=== PATIENT | male | born 1965 | race Caucasian/White ===

== ENCOUNTER 2025-01-07 20:13 | Outpatient (BNV) | payer MEDICAID, SELFPAY | END 2025-01-08 09:00 | PROVIDERS: Admitting Provider Clinical Nurse Specialist Psychiatric/Mental Health, Adult; Visit Provider Internal Medicine Cardiovascular Disease | DX: R00.1 Bradycardia, unspecified (principal) | CPT/HCPCS: 93010 ==

== ENCOUNTER 2025-01-07 20:13 | Inpatient (IN) | payer OTHER, SELFPAY ==
[2025-01-07 20:51] VITALS: BP 167/96; PULSE 100; RESP 18; TEMP 37.1; O2SAT 95
[2025-01-07 23:22] VITALS: BMI 25.1
--- NOTE | 2025-01-08 03:47 | PC.ADMIT ---
Pt is a 59 year old male admitted to unit after referral from CARE team via interhospital transfer from [facility]. Pt arrived on unit at 2050 on 01/07/25. Legal status: 12B. Pt medical issues are; DMII, CAD, HTN, hyperlipidemia, hypertriglyceridemia, hx of myocardial infarct and stent placement. Pt reports THC use but denies any other substances. Pt denies etoh use. Pt refused utox at [facility] according to crisis evaluation. Pt refused to participate in admission process, very labile, so entire admission was done from crisis evaluation. Pt stated that he is too tired for all this and I want to sleep . Pt appears to be suffering from delusions, states he was to a nurse 4 days ago and that he has been here recently identifying an MHC and stating that he remembers her and that he was here the other day . Pt refused all legals and other admission paperwork. Pt was irritable and labile. Precipitant to admission is pt threatening to kill another resident at [facility] in [place]. [facility] clinician then called [place] [employer] to conduct a wellness check. Upon PD and WATCH AND CLOCK REPAIR CLERK arrival, pt began yelling stating that they should not be at his door, infringing upon his rights . Pt's speech was pressured and he was standing in the doorway so one could not see into his apartment. Pt was not able to engage about HI threats he had made earlier, presented wth pressured speech, grandiose thinking and paranoia about someone breaking into his apartment. Pt stated, I have a 487 IQ, I know whats going on . Pt threatened another resident that he would kill them. Teressa, [facility] Director reported that client has also been telling his neighbors that he will eat them and that he wants to kill all the faggots . Katie, [facility] Clinician states that pt has hx of aggression. Crisis evaluation reports pt appeared to be responding to internal stimuli and has a hx of this. [facility] suspects pt is non compliant with medications. Pt presents as disheveled and dressed in [facility]. During skin check with a male MHC and female RN, pt stated You have ulterior motives to having me strip down, you just want to look at my junk , RN told pt that the staff here are professionals and are only assessing his skin, pt responded, yeah, right . Skin check reflects a tattoo on left upper chest area but otherwise unremarkable. Provider cotton broker CAW notified of admission and orders obtained. Pt placed on 15 minute checks for safety. Reports feeling safe in hospital but states he does not belong here .
[2025-01-08] MEDS: Nicotine Polacrilex 2 MG GUM 4 MG BUCCAL ×4 (06:58→21:25)
[2025-01-08] MEDS: Albuterol Sulfate 90 MCG 8 GM INHALER 2 PUFF INHALE (07:09)
[2025-01-08 07:58] VITALS: BP 175/79; PULSE 88; RESP 16; TEMP 36.8; O2SAT 98
[2025-01-08 08:06] LABS: Glucose, Whole Blood 255 mg/dL (60-115)
[2025-01-08] MEDS: Metoprolol Succinate ER 25 MG TAB.ER.24H PO (08:45)
--- NOTE | 2025-01-08 09:00 | ECG_ITS ---
Test Reason : QTc prolongation Blood Pressure : */* mmHG Vent. Rate : 59 BPM Atrial Rate : 59 BPM P-R Int : 134 ms QRS Dur : 92 ms QT Int : 462 ms P-R-T Axes : 150 -27 131 degrees QTcB Int : 457 ms Limb leads reversal Sinus bradycardia U waves Inferior infarct , age undetermined Abnormal ECG No previous ECGs available Referred By: Kirsten Fine Electronically Signed By: Milton Boggs
[2025-01-08] MEDS: Lithium Carbonate ER 450 MG TABLET.ER PO ×2 (09:01→21:27)
[2025-01-08] MEDS: OLANZapine 10 MG TABLET 20 MG PO ×2 (09:03→21:28)
[2025-01-08] MEDS: metFORMIN HCl 500 MG TABLET PO ×2 (09:04→21:27)
[2025-01-08 10:06] LABS: Estimated Average Glucose 177 mg/dL; Hemoglobin A1C 228.3598 umol/L; Hemoglobin A1c % 7.8 % (<6.0); Total Hemoglobin (HGBA1C) 3730.0137 umol/L
[2025-01-08 10:16] LABS: Cholesterol 167 mg/dL (<200); Creatinine Clr Calc Pharmacy 75.8; Estimated Glomerular Filt Rate > 60; HDL Cholesterol 36 mg/dL (>40); LDL Cholesterol Calculated 108 mg/dL (<100); Magnesium 2.1 mg/dL (1.6-2.6); Triglycerides 118 mg/dL (<150)
[2025-01-08 10:31] LABS: Free T4 (Free Thyroxine) 1.51 ng/dL (0.71-1.85); Thyroid Stimulating Hormone 0.21 uIU/mL (0.32-4.0)
[2025-01-08 10:45] LABS: Folate 12.9 ng/mL (> or = 4.0); Vitamin B12 357 pg/mL (200-900)
[2025-01-08 11:40] VITALS: BP 175/84
[2025-01-08] MEDS: lisinopriL 40 MG TABLET PO (11:40)
--- NOTE | 2025-01-08 12:16 | P.CONHOSP_ITS ---
History of Present Illness Data of Consult Service Date: 01/08/25 Primary Care Provider: Unknown Physician HPI Reason for consult: Admission H&P Pt is a 59-year-old male with a PMH significant for?HTN, [id number] type 2 diabetes, CAD s/p stenting x4 in 2009, and bipolar disorder who is admitted to psychiatry unit for manic behavior and homicidal ideation. Pt was initially sent in on a section 12 by [facility] clinician after pt was verbally aggressive, grandiose, and making homicidal threats toward homosexuals in the community. Medical consult for admission H&P. Pt seen and evaluated room where he appears manic, but cooperative. Pt is easily directable and participate meaningfully in HPI. Reports was previously on insulin for diabetes years ago when he was overweight. Pt has since lost over 80 lbs and has been taken off insulin. Currently only on metformin, and pt reports controls his diet and walks a lot. Currently pt has no acute medical complaints. Denies chest pain/pressure, palpitations. No nausea, vomiting, diarrhea. Denies fever, chills. No SOB or difficulty breathing. Labs reviewed, significant for initial POC pf 255 with repeat this afternoon of 137. Review of Systems 2 Review of Systems: Pt has no acute medical complaints at this time. [facility] Medical History (Updated 01/08/25 @ 12:59 by OLIVERIO Rascon) Asthma HTN (hypertension) Non-insulin dependent type 2 diabetes mellitus Hyperlipidemia CAD (coronary artery disease) Social History Household Members: None Housing: Other Housing Other:: [facility] - community health type accommodations Do you presently have visiting nurse or other home services: No Patient Tobacco Use Status: Current everyday Tobacco user Tobacco use type: Cigarette Cigarette Packs Per Day: 0.50 Cigarettes Per Day: 10.0 Smoked in Last 30 Days: Yes e-Cigarette/Vaping Use: Never Used Patient Interested in Nicotine Replacement: Yes (gum only) Patient Given Instructions on How to Stop Smoking: No (not interested) Second Hand Smoke Exposure: No Use of substances other than those prescribed or required for medical reasons: Yes Substance Use Type: Marijuana Currently Displaying Signs/Symptoms of Drug Intoxication Withdrawal: No Any prior treatment program specific to substance use: Yes Advance Directives: No Advance Directives Information Provided: No Do you have a plan to hurt others: Vague Recently lost weight without trying: No How much weight loss: Not applicable Eating poorly because of decreased appetite: No Nutrition screen score: 0 Nutrition Risks: No Nutritional Risk service: No Sexual orientation: Straight/Heterosexual Meds Allergies Allergy/AdvReac Type Severity Reaction Status Date / Time aspirin Allergy Mild Unknown Verified 01/07/25 23:19 pollen extracts Allergy Unknown Unknown Verified 01/07/25 23:19 divalproex sodium AdvReac Severe Rash Verified 01/07/25 23:19 [From Depakote] cats Allergy Unknown Unknown Uncoded 01/07/25 21:07 Active Medications: Current Medications Acetaminophen (Acetaminophen 325 Mg Tablet) 650 mg PO Q6H PRN PRN Reason: Headache/Pain Mild Scale (1-3) Al Hydroxide/Mg Hydroxide (Magnesium Hydrox/Alum Hydrox 30 Ml Oral.Susp) 30 ml PO Q6H PRN PRN Reason: Heartburn/Nausea Albuterol Sulfate (Albuterol Sulfate 90 Mcg 8 Gm Inhaler) 2 puff INHALE Q6H PRN PRN Reason: Shortness Of Breath Aspirin (Aspirin Enteric Coated 81 Mg Tablet.Dr) 81 mg PO DAILY [facility] Atorvastatin Calcium (Atorvastatin Calcium 40 Mg Tablet) 40 mg PO BEDTIME [facility] Doxazosin Mesylate (Doxazosin Mesylate 2 Mg Tablet) 2 mg PO BEDTIME [facility]; Protocol Hydroxyzine HCl (Hydroxyzine Hcl 50 Mg Tablet) 50 mg PO TID PRN PRN Reason: Anxiety Lisinopril (Lisinopril 40 Mg Tablet) 40 mg PO DAILY [facility]; Protocol Last Admin: 01/08/25 11:40 Dose: 40 mg [place] Carbonate ([place] Carbonate Er 450 Mg Tablet.Er) 450 mg PO BID [facility] Lorazepam (Lorazepam 1 Mg Tablet) 1 mg PO Q4H PRN PRN Reason: agitation Magnesium Hydroxide (Milk Of Magnesia 30 Ml Oral.Susp) 30 ml PO DAILY PRN PRN Reason: Constipation Metformin HCl (Metformin Hcl 500 Mg Tablet) 500 mg PO BID [facility] Metoprolol Succinate (Metoprolol Succinate Er 25 Mg Tab.Er.24h) 25 mg PO DAILY [facility]; Protocol Nicotine Polacrilex (Nicotine Polacrilex 2 Mg Gum) 4 mg BUCCAL Q2H PRN PRN Reason: Nicotine Cravings Last Admin: 01/08/25 11:00 Dose: 4 mg Olanzapine (Olanzapine 10 Mg Tablet) 20 mg PO BEDTIME [facility] Trazodone HCl (Trazodone Hcl 50 Mg Tablet) 50 mg PO BEDTIME MRX1 PRN PRN Reason: Insomnia Home Medications ?Medication ?Instructions ?Recorded ?Confirmed ?Last Taken ?Type albuterol sulfate 90 mcg/actuation 2 puff inhalation Q6H PRN 01/07/25 01/07/25 Unknown History aerosol inhaler (Ventolin HFA) Shortness Of Breath aspirin 81 mg tablet,delayed 81 mg PO DAILY 01/07/25 01/07/25 Unknown History release atorvastatin 40 mg tablet 40 mg PO BEDTIME 01/07/25 01/07/25 Unknown History doxazosin 2 mg tablet 2 mg PO BEDTIME 01/07/25 01/07/25 Unknown History hydroxyzine pamoate 50 mg capsule 50 mg PO TID PRN Anxiety 01/07/25 01/07/25 Unknown History lithium carbonate 450 mg 450 mg PO BID 01/07/25 01/07/25 Unknown History tablet,extended release metformin 500 mg tablet 500 mg PO BID 01/07/25 01/07/25 Unknown History metoprolol succinate 25 mg 25 mg PO DAILY 01/07/25 01/07/25 Unknown History tablet,extended release 24 hr olanzapine 20 mg tablet 20 mg PO DAILY 01/07/25 01/07/25 Unknown History lisinopril 40 mg tablet 40 mg DAILY 01/08/25 01/08/25 Unknown History Physical Exam 2 Vital Signs and Narrative: Vital Signs: Last Vital Signs Temp 98.2 F 01/08/25 07:58 Pulse 88 01/08/25 07:58 Resp 16 01/08/25 07:58 BP 175/84 H 01/08/25 11:40 Pulse Ox 98 01/08/25 07:58 O2 Del Method Room Air 01/08/25 07:58 BMI result Body Mass Index 25.1 General: AOx3, no acute distress Resp: CTA bilaterally CVS: S1, S2, RRR GI: +BS, NT, no distention Skin: Warm, dry Neuro: Cranial nerves II-XII grossly intact bilaterally. Motor grossly intact bilaterally Extremities: No edema Psych: Manic with pressured speech. Cooperative, redirectable. Results Labs 01/08/25 09:40 Labs: Laboratory Results - last 24 hr 01/08/25 01/08/25 01/08/25 08:01 09:14 09:40 Estim Creat Clear Calc 75.8 Estimated GFR > 60 POC Glucose 255 H Estimat Average Glucose 177 Hemoglobin A1c % 7.8 H Magnesium 2.1 Triglycerides 118 Cholesterol 167 LDL Cholesterol, Calc 108 H HDL Cholesterol 36 L Vitamin B12 357 Folate 12.9 TSH 0.21 L Free T4 1.51 Assessment and Plan (1) Medical clearance for psychiatric admission: Status: Acute Plan Pt is a 59-year-old male with a PMH significant for?HTN, jgu-bcllrtt-abvyppcsk type 2 diabetes, CAD s/p stenting x4 in 2009, and bipolar disorder who is admitted to [facility] psychiatry unit for manic behavior and homicidal ideation. Pt was initially sent in on a section 12 by [facility] clinician after pt was verbally aggressive, grandiose, and making homicidal threats toward homosexuals in the community. Medical consult for admission H&P. Mood disorder Plan as per Psychiatry Yld-ldybetb-piowlsypx type 2 diabetes Initial POC elevated at 255, repeat this afternoon better controlled 137 A1c elevated at 7.8 Will hold on sliding scale insulin for now, but if patient's POCs are consistently above [address] SSI Continue metformin Encouraged diabetic diet and diabetic snacking CAD/HLD Continue statin, aspirin HTN Continue lisinopril and metoprolol Asthma Not in acute exacerbation Continue home inhalers Thank you for allowing us to participate in the care of this patient. Signing off at this time. Please re-consult if any acute complaints or issues arise.
[2025-01-08 12:34] LABS: Glucose, Whole Blood 137 mg/dL (60-115)
--- NOTE | 2025-01-08 12:52 | HO.PSYADMNOT ---
HPI Date of Service: 01/08/25 Chief Complaint: Bipolar Disorder HPI Subjective Notes: Heart Warning Narrative: per [employer] TECHNICAL EDUCATION TEACHER crisis eval, mobile crisis eval was called due to pt's having threatened to kill another person at his [facility]. PD was also called and performed wellness check; pt was accusing them of infringing upon his rights and behaved in an agitated manner. he was described as demonstrating pressured speech, grandiosity, and paranoia. per collateral from [facility], a peer of pt's at [facility] texted [facility] saying pt had threatened to kill them. [facility]S also reported pt has been threatening to eat the neighbors and kill all the faggots. PD brought pt to [facility] ED on section 12. on interview with assembler unit, pt as described as not forthcoming. he did stae he believes he has schizophrenia and that he has written 3 books, all with spiritual themes. on interview with MD, pt was reasonably pleasant, for the most part, but with increase rate and amount of speech as well as grandiosity. he characterized his mother as a serial killer, and when MD attempted to explore the assertion, pt became defensive and refused to continue to discuss the subject. otherwise pt appeared forthcoming and amenable to treatment. he appeared aware lithium and olanzapine were of great import for his mental health, and he did not appear opposed to taking them. he asserted that he had been medication-compliant in the days leading up to his presentation and agreed to lithium level tonight with adjustment over the weekend as necessary. of note, per MARILYN Warner, pt was quite menacing toward her. pt did not sign in voluntarily and remains on a 12b. Past Psychiatric History: hosps: 14. MRE about 2 months ago, says he can't recall where. SA: denies SIB: denies HIB: denies; per [facility], pt does have h/o aggression outpt: awaiting services [facility] [place] Medical Evaluation Reviewed: Yes [facility] Medical History (Updated 01/08/25 @ 15:32 by Everardo Kurtz MD) Asthma HTN (hypertension) Non-insulin dependent type 2 diabetes mellitus Hyperlipidemia CAD (coronary artery disease) Family History: father - PTSD mother - serial killer Social History: lives alone in an apartment in [place]. 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 bachelor's degree in math. Substance History: tobacco - smokes about 1/2 ppd cannabis - daily denies use of alcohol, illicit drugs, other substances of abuse Trauma History: per [employer] TECHNICAL EDUCATION TEACHER eval: who hasn't been through trauma, then refused to elaborate. Diagnostics Vital Signs (24Hr): Vital Signs - 24 hr 01/07/25 20:51 01/08/25 07:58 01/08/25 11:40 Temperature 98.7 F 98.2 F Pulse Rate 100 88 Respiratory Rate 18 16 Blood Pressure 167/96 H 175/79 H 175/84 H Pulse Oximetry 95 98 Oxygen Delivery Method Room Air Room Air BMI result Body Mass Index 25.1 Labs 01/08/25 09:40 Labs: Laboratory Results - last 48 hr 01/08/25 01/08/25 01/08/25 08:01 09:14 09:40 Creatinine 0.99 Estim Creat Clear Calc 75.8 Estimated GFR > 60 POC Glucose 255 H Estimat Average Glucose 177 Hemoglobin A1c % 7.8 H Magnesium 2.1 Triglycerides 118 Cholesterol 167 LDL Cholesterol, Calc 108 H HDL Cholesterol 36 L Vitamin B12 357 Folate 12.9 TSH 0.21 L Free T4 1.51 01/08/25 12:30 Creatinine Estim Creat Clear Calc Estimated GFR POC Glucose 137 H Estimat Average Glucose Hemoglobin A1c % Magnesium Triglycerides Cholesterol LDL Cholesterol, Calc HDL Cholesterol Vitamin B12 Folate TSH Free T4 Meds/Allergies Meds Home Medications ?Medication ?Instructions ?Recorded ?Confirmed ?Type albuterol sulfate 90 mcg/actuation 2 puff inhalation Q6H PRN 01/07/25 01/07/25 History aerosol inhaler (Ventolin HFA) Shortness Of Breath aspirin 81 mg tablet,delayed 81 mg PO DAILY 01/07/25 01/07/25 History release atorvastatin 40 mg tablet 40 mg PO BEDTIME 01/07/25 01/07/25 History doxazosin 2 mg tablet 2 mg PO BEDTIME 01/07/25 01/07/25 History hydroxyzine pamoate 50 mg capsule 50 mg PO TID PRN Anxiety 01/07/25 01/07/25 History lithium carbonate 450 mg 450 mg PO BID 01/07/25 01/07/25 History tablet,extended release metformin 500 mg tablet 500 mg PO BID 01/07/25 01/07/25 History metoprolol succinate 25 mg 25 mg PO DAILY 01/07/25 01/07/25 History tablet,extended release 24 hr olanzapine 20 mg tablet 20 mg PO DAILY 01/07/25 01/07/25 History lisinopril 40 mg tablet 40 mg DAILY 01/08/25 01/08/25 History Allergies Allergies Allergy/AdvReac Type Severity Reaction Status Date / Time aspirin Allergy Mild Unknown Verified 01/07/25 23:19 pollen extracts Allergy Unknown Unknown Verified 01/07/25 23:19 divalproex sodium AdvReac Severe Rash Verified 01/07/25 23:19 [From Depakote] cats Allergy Unknown Unknown Uncoded 01/07/25 21:07 Mental Status Exam Mental Status Exam Narrative: adequately dressed, somewhat scraggly appearance. cooperative. no PMA/PMR. excessive laughing and smiling. speech incr rate and amount, nml loudness, decr latency. thoughts generally linear and logical, but also digressive spontaneously. affect full range, hyper-intense, non-labile. mood fine. denies SI/SIBI/HI/AVH. Assessment & Plan Assessment & Plan (1) Schizoaffective disorder: Status: Acute Code(s): F25.9 - Schizoaffective disorder, unspecified (2) Cannabis use disorder: Status: Acute Code(s): F12.90 - Cannabis use, unspecified, uncomplicated (3) Nicotine use disorder: Status: Acute Code(s): F17.200 - Nicotine dependence, unspecified, uncomplicated Plan DC ASA per pt request. check lithium level and BMP tonight and adjust lithium dosing accordingly (pt reports he has been taking his medications as prescribed in the days leading up to the hospitalization). continue regimen otherwise. Patient educated on: medication risk/benefits Reason for continued inpatient stay Substantial Risk for: harm to self, harm to others, inability to function and rapid decompensation Statement Statement: I have reviewed the history and physical and performed a pertinent examination on my patient. No changes have occurred unless specified. If the History and Physical was not performed prior to admission, the Hospitalist's service will be consulted for completing the admission physical. Time Spent With Patient Time: Total time managing care of this patient today _55___ minutes.
[2025-01-08] MEDS: Throat Lozenge, Medicated LOZENGE 1 LOZENGE MUCOUS MEM (14:44)
[2025-01-08 17:01] LABS: Glucose, Whole Blood 131 mg/dL (60-115)
[2025-01-08 20:00] VITALS: BP 138/63; PULSE 70; RESP 16; TEMP 36.4; O2SAT 98
[2025-01-08 20:35] LABS: Anion Gap 13 (12-20); Blood Urea Nitrogen 18 mg/dL (9-16); Calcium 9.2 mg/dL (8.4-10.2); Carbon Dioxide 25 mmol/L (22-29); Chloride 108 mmol/L (96-108); Creatinine Clr Calc Pharmacy 78.1; Estimated Glomerular Filt Rate > 60; Glucose Random 189 mg/dL (60-115); Potassium 3.9 mmol/L (3.3-5.1); Sodium 142 mmol/L (135-145)
[2025-01-08 20:37] LABS: Lithium 0.25 mmol/L (0.60-1.20)
[2025-01-08 21:27] VITALS: BP 138/63
[2025-01-08] MEDS: Doxazosin Mesylate 2 MG TABLET PO (21:27)
[2025-01-08] MEDS: Atorvastatin Calcium 40 MG TABLET PO (21:27)
[2025-01-09 08:14] LABS: Glucose, Whole Blood 173 mg/dL (60-115)
[2025-01-09 08:15] VITALS: BP 167/83; PULSE 77; RESP 16; TEMP 36.8; O2SAT 98
--- NOTE | 2025-01-09 08:40 | HO.PSYCHPN ---
Subjective Subjective Date of Service: 01/09/25 Reason For Visit: Bipolar Disorder Subjective Notes: Section 12B Healthcare Proxy: No Guardianship: No Medical Problems Affecting Mental Status: No Interim History: 59 yo reports he is fine, nothing to say to provider- dismissed me promptly- Medication Compliance: No Side effects from medications: No Attending Groups: No Review of Systems Acute medical concerns: No Medical Review of Systems: unchanged Mental Status Exam Mental Status Exam Patient Appearance: Unkempt Patient Orientation: Person, Place, Time and Situation Level of Consciousness: Awake Patient Behavior: Resistive to Care and Good Eye Contact Mood Description: Calm Affect Description: Blunted Patient Cognition Impaired: No Ability to Follow Directions: Fair Speech Pattern: Clear Thought Process: Intact and Goal Oriented Thought Content: positive for Poverty of Content Judgement: Poor Diagnostics Vital Signs (24Hr): Vital Signs - 24 hr 01/08/25 11:40 01/08/25 20:00 01/08/25 21:27 Temperature 97.6 F Pulse Rate 70 Respiratory Rate 16 Blood Pressure 175/84 H 138/63 138/63 Pulse Oximetry 98 Oxygen Delivery Method Room Air 01/09/25 08:15 Temperature 98.3 F Pulse Rate 77 Respiratory Rate 16 Blood Pressure 167/83 H Pulse Oximetry 98 Oxygen Delivery Method BMI result Body Mass Index 25.1 Labs 01/08/25 20:14 Labs: Laboratory Results - last 48 hr 01/08/25 01/08/25 01/08/25 08:01 09:14 09:40 Sodium Potassium Chloride Carbon Dioxide Anion Gap BUN Creatinine 0.99 Estim Creat Clear Calc 75.8 Estimated GFR > 60 POC Glucose 255 H Random Glucose Estimat Average Glucose 177 Hemoglobin A1c % 7.8 H Calcium Magnesium 2.1 Triglycerides 118 Cholesterol 167 LDL Cholesterol, Calc 108 H HDL Cholesterol 36 L Vitamin B12 357 Folate 12.9 TSH 0.21 L Free T4 1.51 [place] 01/08/25 01/08/25 01/08/25 12:30 16:57 20:14 Sodium 142 Potassium 3.9 Chloride 108 Carbon Dioxide 25 Anion Gap 13 BUN 18 H Creatinine 0.96 Estim Creat Clear Calc 78.1 Estimated GFR > 60 POC Glucose 137 H 131 H Random Glucose 189 H Estimat Average Glucose Hemoglobin A1c % Calcium 9.2 Magnesium Triglycerides Cholesterol LDL Cholesterol, Calc HDL Cholesterol Vitamin B12 Folate TSH Free T4 [place] 0.25 L 01/09/25 07:55 Sodium Potassium Chloride Carbon Dioxide Anion Gap BUN Creatinine Estim Creat Clear Calc Estimated GFR POC Glucose 173 H Random Glucose Estimat Average Glucose Hemoglobin A1c % Calcium Magnesium Triglycerides Cholesterol LDL Cholesterol, Calc HDL Cholesterol Vitamin B12 Folate TSH Free T4 [place] Medications Medications Current Medications Acetaminophen (Acetaminophen 325 Mg Tablet) 650 mg PO Q6H PRN PRN Reason: Headache/Pain Mild Scale (1-3) Al Hydroxide/Mg Hydroxide (Magnesium Hydrox/Alum Hydrox 30 Ml Oral.Susp) 30 ml PO Q6H PRN PRN Reason: Heartburn/Nausea Albuterol Sulfate (Albuterol Sulfate 90 Mcg 8 Gm Inhaler) 2 puff INHALE Q6H PRN PRN Reason: Shortness Of Breath Atorvastatin Calcium (Atorvastatin Calcium 40 Mg Tablet) 40 mg PO BEDTIME [facility] Last Admin: 01/08/25 21:27 Dose: 40 mg Benzocaine (Throat Lozenge, Medicated Lozenge) 1 lozenge MUCOUS MEM Q1H PRN PRN Reason: Sore Throat Last Admin: 01/08/25 14:44 Dose: 1 lozenge Doxazosin Mesylate (Doxazosin Mesylate 2 Mg Tablet) 2 mg PO BEDTIME [facility]; Protocol Last Admin: 01/08/25 21:27 Dose: 2 mg Hydroxyzine HCl (Hydroxyzine Hcl 50 Mg Tablet) 50 mg PO TID PRN PRN Reason: Anxiety Lisinopril (Lisinopril 40 Mg Tablet) 40 mg PO DAILY [facility]; Protocol Last Admin: 01/08/25 11:40 Dose: 40 mg [place] Carbonate ([place] Carbonate Er 450 Mg Tablet.Er) 450 mg PO BID [facility] Last Admin: 01/08/25 21:27 Dose: 450 mg Lorazepam (Lorazepam 1 Mg Tablet) 1 mg PO Q4H PRN PRN Reason: agitation Magnesium Hydroxide (Milk Of Magnesia 30 Ml Oral.Susp) 30 ml PO DAILY PRN PRN Reason: Constipation Metformin HCl (Metformin Hcl 500 Mg Tablet) 500 mg PO BID [facility] Last Admin: 01/08/25 21:27 Dose: 500 mg Metoprolol Succinate (Metoprolol Succinate Er 25 Mg Tab.Er.24h) 25 mg PO DAILY [facility]; Protocol Nicotine Polacrilex (Nicotine Polacrilex 2 Mg Gum) 4 mg BUCCAL Q2H PRN PRN Reason: Nicotine Cravings Last Admin: 01/08/25 21:25 Dose: 4 mg Olanzapine (Olanzapine 10 Mg Tablet) 20 mg PO BEDTIME [facility] Last Admin: 01/08/25 21:28 Dose: 20 mg Trazodone HCl (Trazodone Hcl 50 Mg Tablet) 50 mg PO BEDTIME MRX1 PRN PRN Reason: Insomnia Allergies Allergies Allergy/AdvReac Type Severity Reaction Status Date / Time aspirin Allergy Mild Unknown Verified 01/07/25 23:19 pollen extracts Allergy Unknown Unknown Verified 01/07/25 23:19 divalproex sodium AdvReac Severe Rash Verified 01/07/25 23:19 [From Depakote] cats Allergy Unknown Unknown Uncoded 01/07/25 21:07 Assessment & Plan Assessment & Plan (1) Schizoaffective disorder: Status: Acute Code(s): F25.9 - Schizoaffective disorder, unspecified (2) Cannabis use disorder: Status: Acute Code(s): F12.90 - Cannabis use, unspecified, uncomplicated (3) Nicotine use disorder: Status: Acute Code(s): F17.200 - Nicotine dependence, unspecified, uncomplicated Plan DC ASA per pt request. check lithium level and BMP tonight and adjust lithium dosing accordingly (pt reports he has been taking his medications as prescribed in the days leading up to the hospitalization). continue regimen otherwise.' 01/09/- patient denying problems or engaging in care - beyond superficial hyperthryoid though t4 ok tsh quite low- and lithium lvl on 0.25mg -will inc dose- Patient educated on: medication risk/benefits and medical condition Informed Consent: further education needed Reason for continued inpatient stay Substantial Risk for: harm to others and rapid decompensation Time Spent With Patient Time: Total time managing care of this patient today ____ minutes.
[2025-01-09] MEDS: lisinopriL 40 MG TABLET PO (09:39)
[2025-01-09] MEDS: Metoprolol Succinate ER 25 MG TAB.ER.24H PO (09:39)
[2025-01-09] MEDS: Lithium Carbonate ER 450 MG TABLET.ER PO ×2 (09:39→19:59)
[2025-01-09] MEDS: metFORMIN HCl 500 MG TABLET PO ×2 (09:39→19:58)
[2025-01-09] MEDS: Nicotine Polacrilex 2 MG GUM 4 MG BUCCAL ×6 (09:43→21:52)
[2025-01-09] MEDS: Throat Lozenge, Medicated LOZENGE 1 LOZENGE MUCOUS MEM (09:45)
[2025-01-09 11:57] LABS: Glucose, Whole Blood 121 mg/dL (60-115)
[2025-01-09 16:52] LABS: Glucose, Whole Blood 191 mg/dL (60-115)
[2025-01-09] MEDS: Atorvastatin Calcium 40 MG TABLET PO (19:58)
[2025-01-09] MEDS: OLANZapine 10 MG TABLET 20 MG PO (19:59)
[2025-01-09 20:00] VITALS: BP 175/73; PULSE 83; RESP 18; TEMP 36.8; O2SAT 97
[2025-01-09 20:32] VITALS: BP 175/73
[2025-01-09] MEDS: Doxazosin Mesylate 2 MG TABLET PO (20:32)
[2025-01-09 21:33] LABS: Glucose, Whole Blood 179 mg/dL (60-115)
[2025-01-09] MEDS: Albuterol Sulfate 90 MCG 8 GM INHALER 2 PUFF INHALE (22:00)
[2025-01-10] MEDS: Nicotine Polacrilex 2 MG GUM 4 MG BUCCAL ×9 (03:53→23:45)
[2025-01-10] MEDS: Albuterol Sulfate 90 MCG 8 GM INHALER 2 PUFF INHALE ×2 (03:55→18:39)
[2025-01-10 07:55] VITALS: BP 187/90; PULSE 80; RESP 16; TEMP 36.4; O2SAT 99
[2025-01-10 07:55] LABS: Glucose, Whole Blood 186 mg/dL (60-115)
[2025-01-10] MEDS: Metoprolol Succinate ER 25 MG TAB.ER.24H PO (08:40)
[2025-01-10] MEDS: lisinopriL 40 MG TABLET PO (08:41)
[2025-01-10] MEDS: Lithium Carbonate ER 300 MG TABLET.ER 600 MG PO ×2 (08:41→21:45)
[2025-01-10] MEDS: metFORMIN HCl 500 MG TABLET PO ×2 (08:41→21:46)
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
[2025-01-10 12:31] LABS: Glucose, Whole Blood 118 mg/dL (60-115)
[2025-01-10 17:49] LABS: Glucose, Whole Blood 188 mg/dL (60-115)
[2025-01-10 20:00] VITALS: BP 163/91; PULSE 66; RESP 18; TEMP 36.9; O2SAT 97
[2025-01-10 20:41] LABS: Glucose, Whole Blood 160 mg/dL (60-115)
[2025-01-10] MEDS: OLANZapine 10 MG TABLET 20 MG PO (21:45)
[2025-01-10] MEDS: Atorvastatin Calcium 40 MG TABLET PO (21:45)
[2025-01-10] MEDS: Doxazosin Mesylate 2 MG TABLET PO (21:46)
[2025-01-11] MEDS: Nicotine Polacrilex 2 MG GUM 4 MG BUCCAL ×7 (06:00→21:24)
[2025-01-11] MEDS: Albuterol Sulfate 90 MCG 8 GM INHALER 2 PUFF INHALE (06:35)
--- NOTE | 2025-01-11 06:36 | PC.NURSE ---
roel scaned only once that administration cancled, new administration documentation completed
[2025-01-11 07:49] VITALS: BP 142/70; PULSE 79; RESP 16; TEMP 36.4; O2SAT 99
[2025-01-11 07:55] LABS: Glucose, Whole Blood 152 mg/dL (60-115)
[2025-01-11] MEDS: Metoprolol Succinate ER 25 MG TAB.ER.24H PO (08:29)
[2025-01-11] MEDS: lisinopriL 40 MG TABLET PO (08:29)
[2025-01-11] MEDS: Lithium Carbonate ER 300 MG TABLET.ER 600 MG PO ×2 (08:29→21:21)
[2025-01-11] MEDS: metFORMIN HCl 500 MG TABLET PO ×2 (08:29→21:21)
[2025-01-11 12:11] LABS: Glucose, Whole Blood 107 mg/dL (60-115)
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
[2025-01-11 16:47] LABS: Glucose, Whole Blood 169 mg/dL (60-115)
[2025-01-11 19:20] VITALS: BP 135/68; PULSE 75; RESP 18; TEMP 37.1; O2SAT 98
[2025-01-11 20:50] LABS: Glucose, Whole Blood 148 mg/dL (60-115)
[2025-01-11 21:21] VITALS: BP 142/82
[2025-01-11] MEDS: OLANZapine 10 MG TABLET 20 MG PO (21:21)
[2025-01-11] MEDS: Doxazosin Mesylate 2 MG TABLET PO (21:21)
[2025-01-11] MEDS: Atorvastatin Calcium 40 MG TABLET PO (21:21)
[2025-01-12] MEDS: Nicotine Polacrilex 2 MG GUM 4 MG BUCCAL ×3 (04:43→10:34)
[2025-01-12] MEDS: hydrOXYzine HCL 50 MG TABLET PO (05:20)
[2025-01-12 07:40] VITALS: BP 137/74; PULSE 90; RESP 16; TEMP 37.3; O2SAT 99
[2025-01-12 07:44] LABS: Glucose, Whole Blood 194 mg/dL (60-115)
[2025-01-12 08:37] LABS: Lithium 0.97 mmol/L (0.60-1.20)
[2025-01-12] MEDS: Lithium Carbonate ER 300 MG TABLET.ER 600 MG PO (08:38)
[2025-01-12] MEDS: Metoprolol Succinate ER 25 MG TAB.ER.24H PO (08:39)
[2025-01-12] MEDS: metFORMIN HCl 500 MG TABLET PO (08:39)
[2025-01-12] MEDS: lisinopriL 40 MG TABLET PO (08:39)
[2025-01-12 13:54] LABS: Anion Gap 9 (12-20); Blood Urea Nitrogen 18 mg/dL (9-16); Calcium 9.3 mg/dL (8.4-10.2); Carbon Dioxide 27 mmol/L (22-29); Chloride 107 mmol/L (96-108); Creatinine Clr Calc Pharmacy 68.2; Estimated Glomerular Filt Rate > 60; Glucose Random 199 mg/dL (60-115); Potassium 4.7 mmol/L (3.3-5.1); Sodium 138 mmol/L (135-145)
== END 2025-01-12 11:00 | disposition home or self-care (01) | DRG 885 ==
PROVIDERS: Admitting Provider Clinical Nurse Specialist Psychiatric/Mental Health, Adult; Visit Provider Psychiatry & Neurology Psychiatry
DX: F25.9 Schizoaffective disorder, unspecified (principal); I25.10 Atherosclerotic heart disease of native coronary artery without angina pectoris; R45.850 Homicidal ideations; F17.210 Nicotine dependence, cigarettes, uncomplicated; E78.5 Hyperlipidemia, unspecified; Z71.6 Tobacco abuse counseling; F12.90 Cannabis use, unspecified, uncomplicated; I10 Essential (primary) hypertension; E11.9 Type 2 diabetes mellitus without complications; Z95.5 Presence of coronary angioplasty implant and graft; Z79.82 Long term (current) use of aspirin; Z79.84 Long term (current) use of oral hypoglycemic drugs; Z79.899 Other long term (current) drug therapy
CPT/HCPCS: 36415; 80048; 80061; 80178; 82565; 82607; 82746; 82947; 83036; 83735; 84439; 84443; 93005

== ENCOUNTER → 2025-01-07 20:13 | Outpatient (BNV) | payer OTHER, SELFPAY | PROVIDERS: Admitting Provider Clinical Nurse Specialist Psychiatric/Mental Health, Adult; Visit Provider Psychiatry & Neurology Psychiatry | DX: F25.0 Schizoaffective disorder, bipolar type (principal); F12.90 Cannabis use, unspecified, uncomplicated; F17.200 Nicotine dependence, unspecified, uncomplicated | CPT/HCPCS: 90792 ==